=== PATIENT | male | born 1975 | race Caucasian/White ===

== ENCOUNTER 2019-05-21 09:38 | Emergency (ER) | payer BC, SELFPAY ==
[2019-05-21 09:39] VITALS: BP 167/107; PULSE 74; RESP 17; TEMP 36.6; O2SAT 96; BMI 33.6
--- NOTE | 2019-05-21 09:53 | CT_ITS ---
STUDY: CT BRAIN WITHOUT CONTRAST REASON FOR EXAM: Male, 44 years old. DIZZINESS X 1 MONTH RADIATION DOSAGE (If Supplied By Facility): CTDIvol = ( 44.99 ) mGy, DLP = ( 796.11 ) mGycm TECHNIQUE: Transaxial CT imaging of the brain was performed without administration of intravenous contrast material. Individualized dose optimization techniques were used for this CT. COMPARISON: No relevant priors. FINDINGS: Normal soft tissue structures. Normal calvarium. Normal size ventricles and extra-axial spaces for the patient''s age. Normal white matter tracts of the cerebral hemispheres. Normal basal ganglia and thalami. Normal brainstem. Normal cerebellum. There is no intracranial hemorrhage. There are no findings of an acute ischemic infarction. Normal visualized paranasal sinuses. CT/Brain/Head without Contrast IMPRESSION: Normal unenhanced CT scan of the brain. Electronically Signed: Gabriel Ribeiro, at 10:44 EDT , Service support ,
--- NOTE | 2019-05-21 09:53 | EKG12_ITS ---
Test Reason : Blood Pressure : / mmHG Vent. Rate : 070 BPM Atrial Rate : 070 BPM P-R Int : 160 ms QRS Dur : 074 ms QT Int : 396 ms P-R-T Axes : 000 032 035 degrees QTc Int : 427 ms Normal sinus rhythm Cannot rule out Inferior infarct , age undetermined Abnormal ECG Confirmed by AGUILAR WOODS, MARK ([id number]), production editor MINA SINGH ([id number]) on 05/22/2019 1:40:34 PM Referred By: EMIL Confirmed By:MARK SHEIKH MD
--- NOTE | 2019-05-21 09:59 | ED.VIS.GEN ---
History of Present Illness Chief Complaint: Dizziness Informant: Patient Onset: Weeks Current Severity: Mild Maximum Severity: Moderate Narrative: Patient presents with dizziness for the last month or so. He states is been worse over the past few days. Symptoms are worse when he lays on his left side. He feels like the room is moving. He does also report feeling that he may pass out. He denies chest pain. He reports occasional heart pounding but no real palpitations. He does report increased anxiety as well. Patient was seen by nurse practitioner at his PCPs office late last week. He was started on Zoloft 50 mg daily. He states he has been taking this. - Past Medical History (1) Anxiety Status: Chronic (2) Migraine Status: Chronic (3) High cholesterol Status: Chronic Past Medical History - Allergies and Home Meds Allergies/Adverse Reactions: Allergies Penicillins Adverse Reaction (Verified 05/21/19 09:39) Nausea Primary Care Physician: Angelica Gauthier MD [Primary Care Provider] - Prior records reviewed: Yes Lives: With Family Smoking Status: Never smoker Alcohol: Occasional Review of Systems General: Denies: Chills, Fever Eyes: Denies: Visual changes - bilaterally ENT: Denies: Bilateral ear pain Cardiovascular: Denies: Chest pain, Palpitations Respiratory: Denies: Dyspnea, Cough, Sputum Gastrointestinal: Denies: Abdominal pain, Nausea, Vomiting, Diarrhea Genitourinary: Reports: Frequency. Denies: Dysuria Musculoskeletal: Denies: Swelling, Extremity Pain Skin: Denies: Rash Neurological: Denies: Headache Psych: Reports: Anxiety Endocrine: Reports: Polyuria, Polydipsia Allergy: Denies: Uticaria Physical Exam Vital Signs/Narrative: Vital Signs Temp Pulse Resp BP Pulse Ox 05/21/19 09:39 97.8 F 74 17 167/107 H 96 Inital Vital Signs reviewed: Yes General: Well nourished, Well developed Head: Normocephalic ENT: Moist mucous membranes Neck: Supple Cardiovascular: Regular rate, Regular rhythm Respiratory: No distress, CTA bilaterally Abdomen: Soft, Nontender, Normal bowel sounds Extremities: Nontender Skin: Normal color, No rash Neurological: Alert, Oriented x3, Normal Strength, Normal Sensation Psychological: Normal affect Diagnostic/Tx/Re-eval Impressions Brain CT 05/21/19 09:53 IMPRESSION: Normal unenhanced CT scan of the brain. Electronically Signed: Gabriel Ribeiro, at 10:44 EDT , Service support , 05/21/19 09:53 Brain/Head without Contrast [CT] Stat Laboratory Results 05/21/19 05/21/19 05/21/19 10:00 10:00 10:00 WBC 9.1 RBC 5.68 Hgb 16.9 H Hct 49.3 MCV 86.8 MCH 29.8 MCHC 34.3 RDW Std Deviation 38.5 RDW Coeff of Thomas 12.3 Plt Count 252 MPV 10.0 Immature Gran % (Auto) 0.300 Neut % (Auto) 76.5 H Lymph % (Auto) 16.1 L [place] % (Auto) 6.6 Eos % (Auto) 0.1 Baso % (Auto) 0.4 Absolute Neuts (auto) 7.0 Absolute Lymphs (auto) 1.47 Nucleated RBC % 0 Sodium 137 Potassium 3.5 Chloride 101 Carbon Dioxide 28.0 Anion Gap 8 BUN 11 Creatinine 1.39 H Estim Creat Clear Calc 79.37 Est GFR (MDRD) Af Amer 71 Est GFR (MDRD) Non-Af 58 L BUN/Creatinine Ratio 7.9 L Glucose 118 H Calcium 9.1 Urine Color Yellow Urine Clarity Clear Urine pH 7.0 Ur Specific [place] 1.005 Urine Protein Negative Urine Glucose (UA) Normal Urine Ketones Negative Urine Occult Blood Negative Urine Nitrite Negative Urine Bilirubin Negative Urine Urobilinogen Normal Ur Leukocyte Esterase Negative Urine RBC 0 SEEN Urine WBC 0 SEEN Ur Squamous Epith Cells 0 SEEN Urine Bacteria 0 SEEN Urine Mucus 0 SEEN - EKG Initial EKG Interpretation: Sinus Rhythm - Sinus at 70. No acute ischemia. - Medical Decision Making Patient was given a liter IV fluids here along with Antivert. On repeat evaluation he is resting comfortably. He is a flat affect. I did discuss with the patient that it will take at least 6 weeks on Zoloft to notice a significant improvement in his symptoms as far as the anxiety and depression go. I did discuss potentially doing Tu maneuvers and he states he is already done this. I spoke with Dr. Gauthier and updated her on these findings. She is in agreement with Antivert for home and if not improved they can get him in for vestibular therapy. Patient is concerned about possible autoimmune disorder causing the symptoms and she agrees that is appropriate for an outpatient work-up. Patient did ask about something to help him sleep at night. He has been trying Benadryl but was only able to sleep for couple hours. He will be given prescription for Ativan to use at bedtime. ED Disposition - Plan for ED Patient: Disposition: Home or Assisted Living Diagnosis: Vertigo Instructions: VERTIGO, Unspecified Prescriptions: Meclizine HCl [Antivert] 25 mg PO 4X/DAY PRN PRN #20 tablet PRN Reason: Dizziness Lorazepam [Ativan] 1 mg PO QHS PRN PRN #10 tablet PRN Reason: Anxiety Referrals: Angelica Gauthier MD [Primary Care Provider] - 1 Week if not improving
[2019-05-21 10:07] LABS: Bacteria 0 SEEN /hpf (None Seen); Mucous, Urine 0 SEEN /hpf (<or=2+); Red Blood Cells-Urine 0 SEEN /hpf (0-5); Squamous Epithelial Cells - UA 0 SEEN /hpf (0-5); White Blood Cells 0 SEEN /hpf (0-5)
[2019-05-21 10:09] LABS: Color, Urine Yellow (Yellow); Glucose, Dipstick Normal (Normal); Ketone-Dipstick Negative (Negative); Leukocyte Esterase-Dipstick Negative /ul (Negative); Nitrite-Dipstick Negative (Negative); Occult Blood-Urine Negative /ul (Negative); Protein-Dipstick Negative (Negative); Specific Gravity, Urine 1.005 (1.002-1.030); Urine Bilirubin Dipstick Negative (Negative); Urine Clarity Clear (Clear); Urine Urobilinogen Normal (Normal)
[2019-05-21] MEDS: Meclizine HCl 25 MG Tablet PO (10:09)
[2019-05-21] MEDS: 0.9% Normal Saline 1,000 ML 1000 ML IV (10:09)
[2019-05-21 10:11] LABS: Absolute Lymphocyte Count 1.47 X10^3/uL (0.83-4.51); Basophil# 0.04 X10^3/uL; Basophil% 0.4 % (0-1); Eosinophil# 0.01 X10^3/uL; Eosinophils% 0.1 % (0-5); Hematocrit 49.3 % (40-54); Hemoglobin 16.9 g/dL (13.0-16.5); Lymphocyte # 1.47 X10^3/ul (4.0); Lymphocyte % 16.1 % (19-41); Mean Corp Hgb Conc 34.3 g/dL (32-36); Mean Corpuscular Hgb 29.8 pg (27.0-32.0); Mean Corpuscular Volume 86.8 fL (80-94); Monocyte% 6.6 % (0-10); NRBC Flagged by Analyzer 0 % (0-5); Neutrophil # 6.98 X10^3/uL (2.7-7.7); Neutrophil % 76.5 % (47-70); Platelet Count 252 K/mm3 (150-450); RBC Distribution Width CV 12.3 % (11.6-14.6); RBC Distribution Width SD 38.5 fl (35.1-43.9); Red Blood Count 5.68 M/mm3 (4.6-6.2); White Blood Count 9.1 K/mm3 (4.4-11.0)
[2019-05-21 10:28] LABS: Anion Gap 8 (5-15); BUN 11 mg/dL (7-18); BUN/Creat Ratio 7.9 RATIO (10-20); Calcium,Total 9.1 mg/dL (8.5-10.1); Chloride 101 mmol/L (98-107); Creatinine, Serum 1.39 mg/dL (0.70-1.30); EST Glomerular Filtration Rate 58 mL/min (>60); Est Glom Filt Rate - Afr Amer 71 mL/min (>60); Estimated Creatinine Clearance 79.37 ml/min; Glucose 118 mg/dL (74-106); Potassium 3.5 mmol/L (3.5-5.1); Sodium Level 137 mmol/L (136-145)
--- NOTE | 2019-05-21 11:09 | NURSING ---
DR FLEMING PAGED
[2019-05-21 11:49] VITALS: BP 138/85; PULSE 64; RESP 16; O2SAT 95
== END 2019-05-21 11:50 | disposition home or self-care (01) ==
PROVIDERS: Emergency Provider Emergency Medicine; PCP Internal Medicine
DX: R42 Dizziness and giddiness (principal); F41.9 Anxiety disorder, unspecified
CPT/HCPCS: 70450; 80048; 81001; 85025; 93005; 96360; 96361; 99285; J7030; A4216

== ENCOUNTER → 2020-06-24 10:19 | Outpatient (CLI) | payer BC, SELFPAY ==
--- NOTE | 2020-06-24 | SAL_PTH ---
PATIENT: JORGE CARVER LOC: [facility] U#:[id number] AGE/SX: 50/M ROOM: RE06/24/[address]: Dr. Wang Zhang DDS : 1975 BED: DIS: SPEC #: [id number] RECD: 06/24/20 09:51 STATUS: RONALDO AMY #: [id number] YONATAN: 06/24/20 00:[address]: Wang Zhang DEPT: SURGICAL PATHOLOGY RECD BY: Daysi Liang ENTERED: 06/24/20 10:41 SP TYPE: [facility] [place] DR: Dr. 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 Negative for malignancy. See comment. STEPHENIE:jermaine 06/25/2020 COMMENT Special stain for fungi is negative for organisms; matched control is appropriate. Salivary gland tissue is not identified. Clinical correlation and appropriate follow up are necessary. Case has been reviewed in consultation with Dr. Diggs who concurs with the above diagnosis. IDC:AM MICROSCOPIC DESCRIPTION Slides are reviewed. GROSS DESCRIPTION Received in fixative is one container labeled with the patient's name and designated soft palate. The specimen consists of a piece of paulino soft tissue measuring 0.4 x 0.3 x 0.1 cm. The entire specimen is submitted in one cassette. / STEPHENIE:jermaine 06/24/20 TC:5 CPT: 63365, 32966
== END ==
PROVIDERS: PCP Internal Medicine; Referring Provider Dentist Oral and Maxillofacial Surgery; Visit Provider Dentist Oral and Maxillofacial Surgery
DX: K13.6 Irritative hyperplasia of oral mucosa (principal)
CPT/HCPCS: 88305; 88307; 88312